=== PATIENT | male | born 1985 | race Caucasian/White ===

== ENCOUNTER 2021-11-18 17:02 | Emergency (ER) | payer BC ==
[2021-11-18] MEDS ORDERED: Sodium Chloride 0.9% 1000 ML 1,000 ML ONE ×4 (17:27→21:15)
[2021-11-18] MEDS ORDERED: Sodium Chloride 0.9% 1000 ML 1,000 ML IV SCH (17:30)
--- NOTE | 2021-11-18 17:41 | ERPHSYRPT ---
- History of Present Illness Time Seen by Provider: 11/18/21 17:20 Source: patient Exam Limitations: no limitations Patient Subjective Stated Complaint: Pt c/o of muscle fatigue of the legs and SOB on exertion Triage Nursing Assessment: Pt was brought to the ER by his friend, tachycardic, rates leg pain as 7/10, walked into the ER without assistance and did not appear to be in any discomfort, pulses normal, skin n/w/d, denies N&V, denies diarrhea Physician History: Patient is a 36-year-old white male who presents with a complaint of weakness and fatigue for 2 weeks. He had a Covid test done at an outside clinic and then 2 weeks later a home test both of which were negative. He has had some cough off-and-on he denies any nausea vomiting diarrhea loss of taste or smell. He also states he has had no fever of which she is aware. He rates the pain in his leg 7 of 10 and says that they are very fatigued he also complains of some tachycardia. Timing/Duration: week(s) (2) Severity: moderate Modifying Factors: Improves With: movement Associated Symptoms: shortness of breath, cough, malaise, weakness Allergies/Adverse Reactions: No Known Drug Allergies Allergy (Verified 11/18/21 17:16) Home Medications: Methadone HCl 80 mg PO DAILY 11/18/21 [History] Hx Tetanus, Diphtheria Vaccination/Date Given: No Hx Influenza Vaccination/Date Given: No Hx Pneumococcal Vaccination/Date Given: No Travel Risk - International Travel Have you traveled outside of the country in past 3 weeks: No - Coronavirus Screening Are you exhibiting any of the following symptoms?: Yes Symptoms: Headaches/Body Aches/Fatigue Close contact with a COVID-19 positive Pt in past 14-21 Days: No - Vaccine Status Have you recieved a Covid-19 vaccination: Yes [employer]: Moderna - Vaccination Dates Date of 2cond Vaccination (if applicable): 03/2021 - Review of Systems Constitutional: Malaise, Weakness, No Fever, No Chills Eyes: No Symptoms Ears, Nose, & Throat: No Symptoms Respiratory: Cough, Dyspnea, Dyspnea on Exertion (CASTILLO) Cardiac: Palpitations, No Chest Pain, No Edema, No Syncope Abdominal/Gastrointestinal: No Abdominal Pain, No Nausea, No Vomiting, No Diarrhea Genitourinary Symptoms: No Dysuria Musculoskeletal: Arthralgias, Myalgias, No Back Pain, No Neck Pain Skin: No Rash Neurological: Focal Weakness, No Dizziness, No Sensory Changes Psychological: No Symptoms Endocrine: No Symptoms Hematologic/Lymphatic: No Symptoms Immunological/Allergic: No Symptoms All Other Systems: Reviewed and Negative - Past Medical History Pertinent Past Medical History: No - Past Surgical History Past Surgical History: No - Social History Smoking Status: Never smoker Exposure to second hand smoke: Yes Drug Use: none Patient Lives Alone: No - Nursing Vital Signs Nursing Vital Signs: Initial Vital Signs Temperature 96.1 F 11/18/21 17:08 Pulse Rate 113 H 11/18/21 17:08 Blood Pressure 140/115 11/18/21 17:08 O2 Sat by Pulse Oximetry 97 11/18/21 17:08 Pain Scale Pain Intensity 6 - Physical Exam General Appearance: no apparent distress, alert Eye Exam: PERRL/EOMI, eyes nml inspection Ears, Nose, Throat Exam: normal ENT inspection, TMs normal, pharynx normal, moist mucous membranes Neck Exam: normal inspection, supple, full range of motion, midline tenderness Respiratory Exam: normal breath sounds, lungs clear, No respiratory distress Cardiovascular Exam: regular rate/rhythm, normal heart sounds, normal peripheral pulses, tachycardia Gastrointestinal/Abdomen Exam: soft, normal bowel sounds, No tenderness, No mass Back Exam: normal inspection, normal range of motion, No CVA tenderness, No vertebral tenderness Extremity Exam: normal inspection, normal range of motion, pelvis stable Neurologic Exam: alert, oriented x 3, cooperative, normal mood/affect, nml cerebellar function, nml station & gait, sensation nml, No motor deficits Skin Exam: normal color, warm, dry, No rash Lymphatic Exam: No adenopathy SpO2 Interpretation: normal SpO2: 97 O2 Delivery: Room Air - Course EKG Interpreted by Me: RATE ([id number]), Sinus Tach, NORMAL AXIS, prolonged QT interval, Non-specific ST Changes - Radiology Exams Chest X-ray Interpretation: Negative Ordered Tests: Active Orders 24 hr Category Date Time Status EKG-ER Only STAT Care 11/18/21 17:19 Active IV Insertion STAT Care 11/18/21 17:16 Active ABDOMEN AND PELVIS W CONTRAST [CT] Stat Exams 11/18/21 18:41 Ordered CHEST 1 VIEW (PORTABLE) Stat Exams 11/18/21 17:17 Taken BLOOD CULTURE Stat Lab 11/18/21 17:47 Received CBC W DIFF Stat Lab 11/18/21 17:47 Completed CK-Creatinine Phosphokinase Stat Lab 11/18/21 17:47 Completed CMP Stat Lab 11/18/21 17:47 Completed INFLUENZA A+B JOSSUE Stat Lab 11/18/21 17:47 Received Lactic Acid Stat Lab 11/18/21 17:30 Completed Manual Differential NC Stat Lab 11/18/21 17:47 Completed [place] Screen Stat Lab 11/18/21 17:47 Completed TROPONIN Q3H Lab 11/18/21 17:47 Completed TROPONIN Q3H Lab 11/18/21 20:30 Ordered TROPONIN Q3H Lab 11/18/21 23:30 Ordered TROPONIN Q3H Lab 11/19/21 02:30 Ordered TROPONIN Q3H Lab 11/19/21 05:30 Ordered UA W/RFX UR CULTURE Stat Lab 11/18/21 17:16 Ordered Medication Summary Generic Name Dose Route Start Last Admin Trade Name Freq PRN Reason Stop Dose Admin Sodium Chloride 1,000 mls @ 100 mls/hr 11/18/21 17:30 11/18/21 17:50 Sodium Chloride 0.9% 1000 Ml IV 12/18/21 17:29 999 mls/hr .Q10H WILDA Infusion Sodium Chloride 1,000 mls @ 999 mls/hr 11/18/21 17:46 11/18/21 18:07 Sodium Chloride 0.9% 1000 Ml IV 11/18/21 18:46 999 mls/hr .Q1H1M STA Administration Lab/Rad Data: Laboratory Result Diagrams 11/18/21 17:47 11/18/21 17:47 Laboratory Results 11/18/21 11/18/21 11/18/21 Range/Units 17:47 17:47 17:47 WBC (4.0-10.5) K/mm3 RBC (4.1-5.6) M/mm3 Hgb (12.5-18.0) gm/dl Hct (42-50) % MCV (78-100) fl MCH (26-32) pg MCHC (32-36) g/dl RDW (11.5-14.0) % Plt Count (150-450) K/mm3 MPV (7.5-11.0) fl Sodium 135 L (137-145) mmol/L Potassium 3.8 (3.5-5.1) mmol/L Chloride 97 L (98-107) mmol/L Carbon Dioxide 30 (22-30) mmol/L Anion Gap 11.2 (5-15) MEQ/L BUN 15 (9-20) mg/dL Creatinine 0.99 (0.66-1.25) mg/dL Estimated GFR > 60.0 ML/MIN Glucose 149 H (74-106) mg/dL Lactic Acid (0.4-2.0) Calcium 8.8 (8.4-10.2) mg/dL Total Bilirubin 1.00 (0.2-1.3) mg/dL AST 213 H (17-59) U/L ALT 159 H (0-50) U/L Alkaline Phosphatase 513 H (38-126) U/L Creatine Kinase 22 L (55-170) U/L Troponin I 0.020 (0.000-0.034) ng/mL Serum Total Protein 8.2 (6.3-8.2) g/dL Albumin 3.6 (3.5-5.0) g/dL Monoscreen NEGATIVE (Negative) 11/18/21 11/18/21 Range/Units 17:47 17:30 WBC 13.0 H (4.0-10.5) K/mm3 RBC 4.89 (4.1-5.6) M/mm3 Hgb 13.7 (12.5-18.0) gm/dl Hct 41.8 L (42-50) % MCV 85.5 (78-100) fl MCH 28.0 (26-32) pg MCHC 32.8 (32-36) g/dl RDW 15.6 H (11.5-14.0) % Plt Count 289 (150-450) K/mm3 MPV 9.7 (7.5-11.0) fl Sodium (137-145) mmol/L Potassium (3.5-5.1) mmol/L Chloride (98-107) mmol/L Carbon Dioxide (22-30) mmol/L Anion Gap (5-15) MEQ/L BUN (9-20) mg/dL Creatinine (0.66-1.25) mg/dL Estimated GFR ML/MIN Glucose (74-106) mg/dL Lactic Acid 1.5 (0.4-2.0) Calcium (8.4-10.2) mg/dL Total Bilirubin (0.2-1.3) mg/dL AST (17-59) U/L ALT (0-50) U/L Alkaline Phosphatase (38-126) U/L Creatine Kinase (55-170) U/L Troponin I (0.000-0.034) ng/mL Serum Total Protein (6.3-8.2) g/dL Albumin (3.5-5.0) g/dL Monoscreen (Negative) - Progress Progress: unchanged - Departure Departure Disposition: Home Clinical Impression: Elevated liver enzymes, Weakness Condition: Stable Critical Care Time: No Referrals: DOCTOR,NO FAMILY [Primary Care Provider] - Follow up/PCP as directed
[2021-11-18] MEDS ORDERED: Sodium Chloride 0.9% 1000 ML 1,000 ML IV STA ×3 (17:46→21:13)
[2021-11-18 17:57] LABS: Hematocrit 41.8 % (42-50); Hemoglobin 13.7 gm/dl (12.5-18.0); Mean Cell Volume 85.5 fl (78-100); Mean Corpuscular Hgb Concent. 32.8 g/dl (32-36); Mean Platelet Volume 9.7 fl (7.5-11.0); Platelet Count 289 K/mm3 (150-450); Red Blood Count 4.89 M/mm3 (4.1-5.6); Red Cell Distribution Width 15.6 % (11.5-14.0)
[2021-11-18 18:04] LABS: ALBUMIN 3.6 g/dL (3.5-5.0); ALKALINE PHOSPHATASE 513 U/L (38-126); ANION GAP 11.2 MEQ/L (5-15); BLOOD UREA NITROGEN 15 mg/dL (9-20); CHLORIDE 97 mmol/L (98-107); CK-Creatinine Phosphokinase 22 U/L (55-170); Calcium 8.8 mg/dL (8.4-10.2); Carbon Dioxide 30 mmol/L (22-30); Creatinine 1 0.99 mg/dL (0.66-1.25); EST GLOMERULAR FILTRATION RATE > 60.0 ML/MIN; Glucose 149 mg/dL (74-106); Potassium 3.8 mmol/L (3.5-5.1); SGOT/AST 213 U/L (17-59); SGPT/ALT 159 U/L (0-50); SODIUM 135 mmol/L (137-145); Total Protein 8.2 g/dL (6.3-8.2)
--- NOTE | 2021-11-18 18:41 | XRAY ---
Indication: Cough. Short of breath. Comparison: None Portable chest demonstrates normal heart and lungs. Bony thorax intact.
[2021-11-18 18:54] LABS: INFLUENZA A NEGATIVE (NEGATIVE); INFLUENZA B NEGATIVE (NEGATIVE)
[2021-11-18 19:02] LABS: ATYPICAL LYMPHS 8 %; BAND 4 % (0.0-2.0); Basophil 1 % (0.0-1.0); Eosinophil 2 % (0.00-3.0); Lymphocytes 45 % (24-44); Monocyte 10 % (0.0-12.0); Neutrophils 30 % (36.-66.); Platelet Estimate NORMAL (NORMAL); Total Cells Counted 100
[2021-11-18 20:13] LABS: Appearance CLEAR (CLEAR); Bilirubin NEGATIVE (NEGATIVE); Blood NEGATIVE Ery/ul (0-5); Glucose NEGATIVE (NEGATIVE); Ketones TRACE (NEGATIVE); Leukocyte Esterase NEGATIVE (NEGATIVE); Mucus SLIGHT /HPF (NEGATIVE); Nitrite NEGATIVE (NEGATIVE); Protein,Urine Dip NEGATIVE (Negative); Specific Gravity 1.039 (1.005-1.025); Urobilinogen 4 mg/dL (0-1)
[2021-11-18 20:21] LABS: Bacteria NONE SEEN /HPF (NEGATIVE)
[2021-11-18 20:26] LABS: Amphetamine,Urine NEGATIVE (NEGATIVE); Barbiturate,Urine NEGATIVE (NEGATIVE); Benzodiazepine,Urine NEGATIVE (NEGATIVE); Cocaine,Urine NEGATIVE (NEGATIVE); Methadone,Urine POSITIVE (NEGATIVE); Opiate,Urine NEGATIVE (NEGATIVE); PCP,Urine NEGATIVE (NEGATIVE); THC,Urine NEGATIVE (NEGATIVE)
[2021-11-18 22:11] VITALS: O2SAT 97
[2021-11-18] MEDS ORDERED: ROCEPHIN 1 Gm-D5w 50 ml Bag** 1 G/50 ML IVPB IV STA (22:22)
[2021-11-18] MEDS ORDERED: ROCEPHIN 1 Gm-D5w 50 ml Bag** 1 G/50 ML IVPB IV ONE (22:29)
[2021-11-18] MEDS ORDERED: solu-MEDROL 125 MG, Sterile H2O 10 ml 2 ML IV ONE ×2 (22:33)
[2021-11-18] MEDS ORDERED: solu-MEDROL ONE (22:38)
[2021-11-18] MEDS ORDERED: Sterile H2O 10 ml IJ ONE (22:38)
[2021-11-18 22:53] VITALS: BP 131/89; PULSE 88
--- NOTE | 2021-11-19 08:30 | XRAY ---
Indication: Short of breath, tachycardia, and elevated d-dimer. Conventional contrasted CTA chest performed using 80 cc of Isovue-370 contrast. Comparison: None Thoracic aorta is normal in CTA appearance with normal widely patent branching brachycephalic, left common carotid, and left subclavian arteries. There is adequate opacification of the pulmonary arteries to include the lobar and segmental branches. No pulmonary embolus. Heart not enlarged. No pathologic mediastinal/hilar lymphadenopathy. Lungs demonstrates mild bilateral dependent atelectasis greatest in the lung bases. No suspicious pulmonary mass, infiltrate, effusion, or pneumothorax. Bony thorax intact. CT abdomen/pelvis reported separately. Impression: Normal CTA chest with contrast. Negative pulmonary embolus. No acute cardiopulmonary abnormalities. Comment: Preliminary interpretation made by [facility]. No critical discrepancy.
--- NOTE | 2021-11-19 08:34 | XRAY ---
Indication: Elevated liver enzymes. Multiple contiguous axial images obtained through the abdomen and pelvis using 80 cc of Isovue-370 contrast. Comparison: None CT chest reported separately. Noncontrasted stomach and bowel loops appear nonobstructed with normal appendix. Mild diffuse fecal debris throughout including rectum. No free fluid/air. Moderately distended gallbladder without gallstones or biliary distention. Right kidney demonstrates nonobstructing punctate calculus and 1.2 cm cyst. Incidental 21.4 cm hepatomegaly and 15.4 cm splenomegaly. Remaining liver, gallbladder, pancreas, spleen, adrenal glands, kidneys, ureters, bladder, and aorta are unremarkable. No pathological retroperitoneal lymphadenopathy. Osseous structures intact. No ventral or inguinal hernias. Impression: 1. Mild distended gallbladder better evaluated with sonogram if clinically warranted. 2. Mild fecal stasis, nonobstructing right renal punctate calculus, small right renal cyst, and hepatosplenomegaly. 3. Remaining CT abdomen/pelvis with contrast exam is negative. Comment: Preliminary interpretation made by [facility]. No critical discrepancy.
[2021-11-21 06:08] LABS: HBsAg Screen Negative (Negative); Hep A Ab, IgM Negative (Negative); Hep B Core Ab, IgM Negative (Negative)
[2021-11-21 20:08] LABS: Hep C Virus Ab <0.1 s/co ratio (0.0-0.9)
== END 2021-11-18 22:57 | disposition home or self-care (01) ==
LOC: ED 17:02
DX: R53.1 Weakness (principal); R74.8 Abnormal levels of other serum enzymes; R74.01 Elevation of levels of liver transaminase levels; J18.9 Pneumonia, unspecified organism; R53.83 Other fatigue; R05.9 Cough, unspecified; R06.02 Shortness of breath; Z79.52 Long term (current) use of systemic steroids
CPT/HCPCS: 36000; 36415; 71045; 71260; 74177; 80053; 80074; 80307; 81001; 82550; 83605; 84484; 85025; 85379; 86308; 87040; 87400; 87651; 93005; 96360; 96361; 96365; 96374; 96375; 99285; J0696; J2930